=== PATIENT | female | born 1995 | race Caucasian/White ===

== ENCOUNTER 2020-01-04 11:19 | Emergency (ER) | payer OTHER ==
[2020-01-04 11:25] VITALS: BP 109/60; PULSE 74; BMI 35.1
[2020-01-04] MEDS ORDERED: ACETAMINOPHEN 325 MG TABLET (FP) PO ONE (12:15)
--- NOTE | 2020-01-04 12:31 | PDOC ---
History of Present Illness - General Chief Complaint: Pain, Acute Stated Complaint: LWR BACK PAIN Time Seen by Provider: 01/04/20 12:03 History Source: Patient Exam Limitations: Clinical Condition - History of Present Illness Initial Comments: 01/04/20 12:26 Patient with no significant past medical history G1, P0 LMP October 16 present with complaint of 2 months history of lower back pain and suprapubic discomfort which she describes as pressure. Patient report taking home test 2 months ago which came back positive. Patient has not seen anybody for or sym ptoms. Patient has not taken anything for symptoms. Patient report intermittent nausea but denies vomiting. Denies vaginal bleeding, diarrhea, constipation, fever, chills, shortness of breath, weakness, cough, chest pain, palpitation. Denies any other symptoms Is this a multiple visit Asthma Patient?: No Timing/Duration: other (2 months) Past History - Medical History Allergies/Adverse Reactions: Allergies Allergy/AdvReac Type Severity Reaction Status Date / Time No Known Allergies Allergy Verified 01/04/20 13:04 COPD: No - Reproductive History Is Patient Now?: Yes - Immunization History Immunization Up to Date: No - Psycho-Social/Smoking History Smoking History: Never smoked - Substance Abuse Hx (Audit-C & DAST Scrn) How often the patient has a drink containing alcohol: Never Score: In Men: 4 or > Positive; In Women: 3 or > Positive: 0 Screen Result (Pos requires Nsg. Audit-10AR): Negative In the last yr the pt used illegal drug/Rx for NonMed reason: No Score: Yes response is considered Positive: 0 Screen Result (Positive result requires Nsg. DAST-10): Negative Review of Systems - Review of Systems Able to Perform ROS?: Yes Is the patient limited Filipino proficient: No Constitutional: No: Chills, Fever, Malaise HEENTM: No: Symptoms Reported, See HPI, Eye Pain, Blurred Vision, Tearing, R ecent change in vision, Double Vision, Cataracts, Ear Pain, Ocular Prothesis, Ear Discharge, Nose Pain, Nose Congestion, Tinnitus, Nose Bleeding, Hearing Loss, Throat Pain, Throat Swelling, Mouth Pain, Dental Problems, Difficulty Swallowing, Mouth Swelling, Other Respiratory: No: Symptoms reported, See HPI, Cough, Orthopnea, Shortness of Breath, SOB with Exertion, SOB at Rest, Stridor, Wheezing, Productive cough, Hemoptysis, Other Cardiac (ROS): No: Symptoms Reported, See HPI, Chest Pain, Edema, Irregular Heart Rate, Lightheadedness, Palpitations, Syncope, Chest Tightness, Other ABD/GI: Yes: Symptoms Reported, See HPI, Nausea, Abdominal cramping (Suprapubic). No: Abdominal Distended, Blood Streaked Bowels, Constipated, Diarrhea, Difficulty Swallowing, Rectal Bleeding, Vomiting, Indigestion, Tarry Stools : Yes: Symptoms Reported, See HPI, Frequency. No: Burning, Dysuria, Discharge, Flank Pain, Hematuria, Urgency Musculoskeletal: Yes: Symptoms Reported, See HPI, Back Pain Integumentary: No: Symptoms Reported Neurological: No: Weakness, Dizziness All Other Systems: Reviewed and Negative *Physical Exam - Vital Signs Last Vital Signs Temp Pulse Resp BP Pulse Ox 74 20 109/60 100 01/04/20 11:22 01/04/20 11:22 01/04/20 11:22 01/04/20 11:22 - Physical Exam General Appearance: Yes: Nourished, Appropriately Dressed. No: Apparent Distress HEENT: positive: Normal ENT Inspection Neck: positive: Supple Respiratory/Chest: positive: Lungs Clear, Normal Breath Sounds. negative: Respiratory Distress, Accessory Muscle Use Cardiovascular: positive: Regular Rhythm, Regular Rate Female Pelvic Exam: positive: normal external exam, cervical os closed, normal adnexa. negative: vaginal bleeding Gastrointestinal/Abdominal: positive: Normal Bowel Sounds, Tender (Mild suprapubic tenderness). negative: Distended, Guarding, Rebound Musculoskeletal: positive: Normal Inspection. negative: CVA Tenderness Extremity: positive: Normal Capillary Refill, Normal Inspection, Normal Range of Motion Integumentary: positive: Normal Color Neurologic: positive: Fully Oriented, Alert, Normal Mood/Affect, Normal Respon se, Motor Strength /5 ED Treatment Course - LABORATORY CBC & Chemistry Diagram: 01/04/20 12:22 Medical Decision Making - Medical Decision Making 01/04/20 12:28 Patient with no significant past medical history G1, P0 LMP October 16 present with complaint of 2 months history of lower back pain and suprapubic discomfort which she describes as pressure. Patient report taking home test 2 months ago which came back positive. Patient has not seen anybody for or symptoms. Patient has not taken anything for symptoms. Patient report intermittent nausea but denies vomiting. Denies vaginal bleeding, diarrhea, constipation, fever, chills, shortness of breath, weakness, cough, chest pain, palpitation. Denies any other symptoms Exam significant for mild suprapubic discomfort without guarding or rebound. No back tenderness elicited on exam. Normal abdominal exam. Lungs clear to auscultation bilateral and normal cardio exam. Negative CVA tenderness. Patient afebrile. No vaginal bleeding on exam. Patient symptoms likely cystitis versus related body pains. Beta-hCG lab ordered, CBC, UA and urine culture lab ordered. Tylenol 650 mg p.o. ordered for pain. Transvaginal ultrasound ordered to evaluate . Treat based on lab imaging results 01/04/20 14:04 Beta-hCG 62,000+. CBC and urine lab unremarkable. [id number] ultrasound done by Dr. Evans shows 10 weeks with live IUP and heart rate. Patient reported no pain at this time. Patient stable for discharge with follow-up with [facility] to establish care. Strict follow-up instructions discussed with patient and patient left room without complication 01/04/20 16:54 Discharge - Discharge Information Problems reviewed: Yes Clinical Impression/Diagnosis: Back pain during Qualifiers: Weeks of gestation: 10 weeks Qualified Code(s): Z3A.10 - 10 weeks gestation of Condition: Stable Disposition: HOME - Admission No - Follow up/Referral Referrals: Juan Day MD [Staff Physician] - Opal Anderson MD [Staff Physician] - - Patient Discharge Instructions Patient Printed Discharge Instructions: Common Discomforts and Bodily Changes During Additional Instructions: Your blood work and urine is normal. Your ultrasound shows 10 weeks with live baby in the uterus. Continue taking home vitamins as discussed. Take Tylenol as needed for pain. Follow-up referred OB to establish care for . Come back to the emergency room if vaginal bleeding, worsening pain otherwise follow-up as discussed - Post Discharge Activity
[2020-01-04 12:46] LABS: BASO % 0.3 % (0-2.0); EOS % 0.6 % (0-4.5); HEMATOCRIT 39.7 % (32.4-45.2); HEMOGLOBIN 13.4 GM/dL (10.7-15.3); LYMPH % 27.6 % (8-40); MCH 26.6 pg (25.7-33.7); MCHC 33.6 g/dl (32.0-36.0); MEAN CELL VOLUME 79.1 fl (80-96); MEAN PLT VOLUME 8.9 fl (7.5-11.1); MONO % 6.7 % (3.8-10.2); NEUT % 64.8 % (42.8-82.8); PLATELET COUNT 152 K/MM3 (134-434); RBC 5.02 M/mm3 (3.60-5.2)
[2020-01-04 13:44] LABS: PH,URINE 6.5 (5.0-8.0); URINE APPEARANCE CLEAR; URINE BILIRUBIN NEGATIVE (NEGATIVE); URINE COLOR YELLOW; URINE GLUCOSE (UA) NEGATIVE (NEGATIVE); URINE KETONE NEGATIVE (NEGATIVE); URINE LEUK ESTERASE NEGATIVE (NEGATIVE); URINE NITRITE NEGATIVE (NEGATIVE); URINE PROTEIN NEGATIVE (NEGATIVE); URINE UROBILINOGEN 0.2 mg/dL (0.2-1.0)
== END 2020-01-04 14:34 | disposition home or self-care (01) ==
LOC: JER 11:19
DX: M54.5 Low back pain (principal); Z3A.10 10 weeks gestation of pregnancy
CPT/HCPCS: 36415; 76817; 81003; 84702; 85025; 87086; 99283-25

== ENCOUNTER 2020-06-28 08:40 | Inpatient (IN) | payer OTHER ==
[2020-06-28 09:43] LABS: BASO % 0.6 % (0-2.0); EOS % 0.7 % (0-4.5); HEMATOCRIT 36.6 % (32.4-45.2); HEMOGLOBIN 12.4 GM/dL (10.7-15.3); LYMPH % 28.4 % (8-40); MCH 26.8 pg (25.7-33.7); MCHC 33.8 g/dl (32.0-36.0); MEAN CELL VOLUME 79.4 fl (80-96); MEAN PLT VOLUME 10.6 fl (7.5-11.1); MONO % 5.6 % (3.8-10.2); NEUT % 64.7 % (42.8-82.8); PLATELET COUNT 139 K/MM3 (134-434); RDW 14.1 % (11.6-15.6); WHITE BLOOD COUNT 7.7 K/mm3 (4.0-10.0)
[2020-06-28 09:51] LABS: INR 0.99 (0.83-1.09)
[2020-06-28 09:53] LABS: ACTIVATED PTT 28.6 SECONDS (25.2-36.5)
[2020-06-28] MEDS ORDERED: DINOPROSTONE 10 MG VAGINAL SUPPOSITORY VG ONE (10:03)
[2020-06-28 10:11] LABS: CALCIUM 8.9 mg/dL (8.5-10.1); POTASSIUM 3.7 mmol/L (3.5-5.1)
[2020-06-28 10:13] LABS: BLOOD UREA NITROGEN 8.6 mg/dL (7-18)
[2020-06-28 10:16] LABS: CREATININE 0.6 mg/dL (0.55-1.3)
[2020-06-28] MEDS: ELECTROLYTE-148 SOLN 1,000 ML IV SCH ×2 (10:30→17:15)
[2020-06-28 10:40] VITALS: BMI 34.7
[2020-06-28 10:48] LABS: POC NITRAZINE POS
[2020-06-28] MEDS ORDERED: OXYTOCIN 30 UNITS in 0.9% NS 30 UNIT/500 ML INFUS.BAG IVPB SCH (21:00)
[2020-06-28] MEDS ORDERED: BUTORPHANOL TARTRATE 1 MG/ML VIAL IVPUSH PRN (21:35)
[2020-06-28] MEDS ORDERED: OXYTOCIN 30 UNITS in 0.9% NS 30 UNIT/500 ML INFUS.BAG IVPB ONE (21:36)
[2020-06-28] MEDS ORDERED: BUTORPHANOL TARTRATE 2 MG/ML VIAL ONE (21:37)
[2020-06-28] MEDS ORDERED: PROMETHAZINE HCL 25 MG/1 ML VIAL ONE (21:37)
[2020-06-29] MEDS ORDERED: FENTANYL/BUPIVACAINE/NS/PF - PCEA - 50 ML DISP.SYRIN EP ONE (01:47)
[2020-06-29] MEDS ORDERED: NALOXONE HCL 0.4 MG/ML VIAL IVPUSH PRN (02:53)
[2020-06-29] MEDS ORDERED: FENTANYL/BUPIVACAINE/NS/PF - PCEA - 50 ML DISP.SYRIN EP SCH (03:00)
[2020-06-29] MEDS ORDERED: BISACODYL 10 MG SUPP.RECT PR PRN (06:06)
[2020-06-29] MEDS ORDERED: BENZOCAINE 28 GM HEMORRHOIDAL OINTMENT PR PRN (06:06)
[2020-06-29] MEDS ORDERED: BENZOCAINE 20% 57 GM BOTTLE TP PRN (06:06)
[2020-06-29] MEDS ORDERED: WITCH HAZEL 50% (TUCKS) 40 PAD/JAR PAD TP PRN (06:06)
[2020-06-29] MEDS ORDERED: METHYLERGONOVINE MALEATE 0.2 MG/1 ML AMP IM PRN (06:06)
[2020-06-29] MEDS ORDERED: OXYTOCIN 20 UNITS in 0.9% NS 20 UNIT/1,000 ML INFUS.BAG IV SCH (06:15)
[2020-06-29] MEDS ORDERED: OXYTOCIN 20 UNITS in 0.9% NS 20 UNIT/1,000 ML INFUS.BAG IV ONE ×2 (07:10→07:38)
[2020-06-29] MEDS ORDERED: LIDOCAINE HCL 1% PRESERVATIVE FREE - 30ML VIAL ONE (07:38)
[2020-06-29 09:00] LABS: CORD BASE EXCESS -5.6 mmol/L (0-2); CORD HCO3 19.9 mmHg (20-29); CORD PCO2 39.4 mmHg (30-78); CORD pH 7.322 (7.14-7.44)
[2020-06-29] MEDS: ACETAMINOPHEN 325 MG TABLET (FP) PO PRN (17:15)
[2020-06-29] MEDS: IBUPROFEN 600 MG TABLET (FP) PO PRN (17:15)
[2020-06-30 09:16] LABS: BASO % 0.4 % (0-2.0); EOS % 0.3 % (0-4.5); HEMOGLOBIN 11.3 GM/dL (10.7-15.3); LYMPH % 16.3 % (8-40); MCH 27.1 pg (25.7-33.7); MCHC 34.1 g/dl (32.0-36.0); MEAN CELL VOLUME 79.5 fl (80-96); MEAN PLT VOLUME 9.7 fl (7.5-11.1); MONO % 5.6 % (3.8-10.2); NEUT % 77.4 % (42.8-82.8); PLATELET COUNT 126 K/MM3 (134-434); RBC 4.15 M/mm3 (3.60-5.2); RDW 14.5 % (11.6-15.6); WHITE BLOOD COUNT 10.6 K/mm3 (4.0-10.0)
[2020-06-30] MEDS: ACETAMINOPHEN 325 MG TABLET (FP) PO PRN ×2 (13:48→21:59)
[2020-06-30] MEDS: IBUPROFEN 600 MG TABLET (FP) PO PRN ×2 (13:49→21:59)
[2020-07-01 09:30] VITALS: BP 102/57; PULSE 78; TEMP 98.4
== END 2020-07-01 15:00 | disposition home or self-care (01) | DRG 560 ==
LOC: JDEL 08:40 → JLDR 08:45 → J3W 06-29 13:09
PROVIDERS: ADMIT Obstetrics & Gynecology; ATTEND Obstetrics & Gynecology
PROC: 3E0P7VZ Introduction of Hormone into Female Reproductive, Via Natural or Artificial Opening (ICD-10-PCS; 2020-06-28)
PROC: 10E0XZZ Delivery of Products of Conception, External Approach (ICD-10-PCS; principal; 2020-06-29)
PROC: 0W8NXZZ Division of Female Perineum, External Approach (ICD-10-PCS; 2020-06-29)
DX: O42.02 Full-term premature rupture of membranes, onset of labor within 24 hours of rupture (principal); Z3A.38 38 weeks gestation of pregnancy; Z37.0 Single live birth
CPT/HCPCS: 36415; 36600; 59409; 80048; 82803; 83986-QW; 85025; 85610; 85730; 86780; 86850; 86900; 86901; 87389; C9803; U0003

== ENCOUNTER 2021-09-06 20:45 | Inpatient (IN) | payer BC, OTHER ==
[2021-09-06] MEDS ORDERED: ELECTROLYTE-148 SOLN 1,000 ML IV SCH ×2 (21:35→22:45)
[2021-09-06] MEDS ORDERED: AMPICILLIN - 2 GM in SODIUM CHLORIDE 100 ML IVPB ONE (22:45)
[2021-09-06] MEDS ORDERED: AMPICILLIN SODIUM 2 GM VIAL ONE (23:00)
[2021-09-06 23:22] LABS: BASO % 0.5 % (0-2.0); EOS % 0.3 % (0-4.5); HEMATOCRIT 36.1 % (32.4-45.2); HEMOGLOBIN 12.3 GM/dL (10.7-15.3); MCH 25.5 pg (25.7-33.7); MEAN CELL VOLUME 74.9 fl (80-96); MEAN PLT VOLUME 9.7 fl (7.5-11.1); MONO % 4.5 % (3.8-10.2); NEUT % 77.7 % (42.8-82.8); PLATELET COUNT 138 10^3/uL (134-434); RBC 4.82 M/mm3 (3.60-5.2); RDW 14.9 % (11.6-15.6); WHITE BLOOD COUNT 11.1 K/mm3 (4.0-10.0)
[2021-09-06 23:30] LABS: INR 1.06 (0.83-1.09); PROTHROMBIN TIME (PATIENT) 12.2 SEC (9.7-13.0)
[2021-09-06 23:33] LABS: ACTIVATED PTT 29.8 SECONDS (25.2-36.5)
[2021-09-06 23:45] LABS: CALCIUM 8.7 mg/dL (8.5-10.1)
[2021-09-06 23:46] LABS: ALBUMIN 2.6 g/dl (3.4-5.0); BLOOD UREA NITROGEN 6.5 mg/dL (7-18)
[2021-09-06 23:49] LABS: CREATININE 0.6 mg/dL (0.55-1.3)
[2021-09-06 23:50] LABS: BILIRUBIN,TOTAL 0.3 mg/dL (0.2-1); TOT PROT 6.8 g/dl (6.4-8.2)
[2021-09-06 23:55] VITALS: BMI 36.6
[2021-09-07] MEDS ORDERED: NALOXONE HCL 0.4 MG/ML VIAL IVPUSH PRN (00:25)
[2021-09-07] MEDS ORDERED: BUPIVACAINE HCL/PF 0.25% (2.5MG/ML) 10 ML VIAL ONE (00:27)
[2021-09-07] MEDS ORDERED: BETAMET ACET/BETAMET NA PH 30 MG/5 ML VIAL ONE (00:28)
[2021-09-07] MEDS ORDERED: BETAMET ACET/BETAMET NA PH 30 MG/5 ML VIAL IM ONE (00:29)
[2021-09-07] MEDS ORDERED: FENTANYL/BUPIVACAINE/NS/PF - PCEA - 50 ML DISP.SYRIN EP SCH (00:30)
[2021-09-07] MEDS ORDERED: ELECTROLYTE-148 SOLN 1,000 ML IV SCH (00:30)
[2021-09-07] MEDS ORDERED: OXYTOCIN 20 UNITS in 0.9% NS 20 UNIT/1,000 ML INFUS.BAG IV ONE ×2 (00:35→02:35)
[2021-09-07 00:52] LABS: URINE APPEARANCE CLEAR; URINE BILIRUBIN NEGATIVE (NEGATIVE); URINE COLOR YELLOW; URINE GLUCOSE (UA) NEGATIVE (NEGATIVE); URINE KETONE 1+ (NEGATIVE); URINE LEUK ESTERASE NEGATIVE (NEGATIVE); URINE NITRITE NEGATIVE (NEGATIVE); URINE PROTEIN NEGATIVE (NEGATIVE)
[2021-09-07 01:01] LABS: METHADONE, UR NEGATIVE (NEGATIVE); URINE BENZODIAZEPINES NEGATIVE (NEGATIVE)
[2021-09-07 01:02] LABS: COCAINE, UR NEGATIVE (NEGATIVE); OPIATES, URI NEGATIVE (NEGATIVE); PHENCYCLIDINE,URINE NEGATIVE (NEGATIVE); URINE BARBITURATES NEGATIVE (NEGATIVE)
[2021-09-07 01:04] LABS: SYPHILIS W/ RPR CONF NON-REACTIVE (NONREACTIVE)
[2021-09-07 01:06] LABS: URINE AMPHETAMINES NEGATIVE (NEGATIVE)
[2021-09-07] MEDS ORDERED: BENZOCAINE 28 GM HEMORRHOIDAL OINTMENT TP PRN (01:22)
[2021-09-07] MEDS ORDERED: oxyCODONE HCL 5 MG TABLET PO PRN (01:22)
[2021-09-07] MEDS ORDERED: ACETAMINOPHEN 325 MG TABLET (FP) PO PRN (01:22)
[2021-09-07] MEDS ORDERED: BENZOCAINE 20% 57 GM BOTTLE TP PRN (01:22)
[2021-09-07] MEDS ORDERED: METHYLERGONOVINE MALEATE 0.2 MG/1 ML AMP IM PRN (01:22)
[2021-09-07] MEDS ORDERED: BISACODYL 10 MG SUPP.RECT RC PRN (01:22)
[2021-09-07] MEDS ORDERED: WITCH HAZEL 50% (TUCKS) 40 PAD/JAR PAD TP PRN (01:22)
[2021-09-07] MEDS ORDERED: MEPERIDINE HCL 25 MG/ML VIAL IVPB ONE (01:24)
[2021-09-07] MEDS ORDERED: OXYTOCIN 20 UNITS in 0.9% NS 20 UNIT/1,000 ML INFUS.BAG IV SCH (01:30)
[2021-09-07 01:33] LABS: HIV INTERPRETATION NEGATIVE (NEGATIVE)
[2021-09-07 02:27] LABS: CORD BASE EXCESS -4.9 mmol/L (0-2); CORD HCO3 18.3 mmHg (20-29); CORD PCO2 30.6 mmHg (30-78); CORD pH 7.395 (7.14-7.44)
[2021-09-07] MEDS ORDERED: AMPICILLIN - 1 GM in SODIUM CHLORIDE 100 ML IVPB SCH (02:45)
[2021-09-07] MEDS: IBUPROFEN 600 MG TABLET (FP) PO PRN (05:48)
[2021-09-07] MEDS: PRENATAL VITAMINS W/ FOLIC ACID TABLET (FP) PO SCH (09:27)
[2021-09-07] MEDS: FERROUS SO4 325 MG TABLET (FP) PO SCH ×3 (09:27→18:06)
[2021-09-08] MEDS: IBUPROFEN 600 MG TABLET (FP) PO PRN ×2 (08:18→14:17)
[2021-09-08] MEDS: FERROUS SO4 325 MG TABLET (FP) PO SCH ×3 (08:58→18:18)
[2021-09-08 09:38] LABS: BASO % 0.5 % (0-2.0); EOS % 0.9 % (0-4.5); HEMATOCRIT 36.8 % (32.4-45.2); HEMOGLOBIN 12.6 GM/dL (10.7-15.3); LYMPH % 31.5 % (8-40); MCH 26.1 pg (25.7-33.7); MCHC 34.2 g/dl (32.0-36.0); MEAN CELL VOLUME 76.3 fl (80-96); MEAN PLT VOLUME 10.7 fl (7.5-11.1); MONO % 5.2 % (3.8-10.2); NEUT % 61.9 % (42.8-82.8); PLATELET COUNT 141 10^3/uL (134-434); RBC 4.83 M/mm3 (3.60-5.2); RDW 15.4 % (11.6-15.6); WHITE BLOOD COUNT 9.7 K/mm3 (4.0-10.0)
[2021-09-08] MEDS: PRENATAL VITAMINS W/ FOLIC ACID TABLET (FP) PO SCH (10:22)
[2021-09-08] MEDS ORDERED: SENNOSIDES/DOCUSATE COMBO (SENNA PLUS) TABLET (UD) PO PRN (22:00)
[2021-09-09] MEDS: FERROUS SO4 325 MG TABLET (FP) PO SCH ×2 (08:56→12:24)
[2021-09-09] MEDS: IBUPROFEN 600 MG TABLET (FP) PO PRN (08:56)
[2021-09-09 10:18] VITALS: BP 100/68; PULSE 75; TEMP 98
[2021-09-09] MEDS: PRENATAL VITAMINS W/ FOLIC ACID TABLET (FP) PO SCH (11:00)
== END 2021-09-09 14:20 | disposition home or self-care (01) | DRG 807 ==
LOC: JDEL 20:45 → JLDR 22:45 → J3W 09-07 03:01
PROVIDERS: ADMIT Obstetrics & Gynecology; ATTEND Obstetrics & Gynecology
PROC: 10E0XZZ Delivery of Products of Conception, External Approach (ICD-10-PCS; principal; 2021-09-07)
PROC: 0KQM0ZZ Repair Perineum Muscle, Open Approach (ICD-10-PCS; 2021-09-07)
DX: O60.14X0 Preterm labor third trimester with preterm delivery third trimester, not applicable or unspecified (principal); Z37.0 Single live birth; O70.1 Second degree perineal laceration during delivery; Z3A.34 34 weeks gestation of pregnancy
CPT/HCPCS: 36415; 36600; 59409; 80053; 80307; 81003; 82803; 85025; 85610; 85730; 86762; 86780; 86850; 86900; 86901; 87070; 87075; 87186; 87205; 87340; 87389; 88307-TC; C9803-CS; U0003; U0005